=== PATIENT | male | born 1960 | race Caucasian/White ===

== ENCOUNTER 2017-02-09 09:32 | Inpatient (IN) | payer BC ==
--- NOTE | ~2017-02-09 | HP ---
History And Physical [address] [place]. [address] NAME: LIDIA CALLEJAS SHIMA : 64 STATUS : ADM IN [facility]#: [id number] AGE: 56 ADM/REG DATE : 02/09/17 MR#: [id number] REPORT SERV DATE: 02/09/17 DICTATED BY: STEVE PHILLIPS DATE: 02/09/17 REPORT STATUS : Draft TRANSCRIBED BY: MODDavi DATE: 02/09/17 DATE OF ADMISSION: 02/09/2017 REASON FOR ADMISSION: Weakness of the lower extremities. HISTORY OF PRESENT ILLNESS: This is a 56-year-old white male, who is well known to me from past care. He had morbid obesity and gastric bypass by Dr. William. His problem began this morning when he got up and fell. His neighbor brought him into the emergency room. He has had been having weakness in his left lower extremity for a long period of time. There are times when he cannot raise his legs and cross them. He has had some bilateral tingling and numbness that he was speaking to Dr. Ponce about; however, he denies any upper extremity weakness, numbness, or tingling to me. He does have chronic kidney disease. Creatinine of 1.96 is down slightly. He has been placed on an ARB since his renal failure was initially discovered and did respond to withholding of the COLBY inhibitor that he was on previously. He is also having hyperchloremic metabolic acidosis, and is on bicarbonate for that as well. New medication added was hydralazine added by Dr. William about two months ago at 25 mg p.o. three times a day. He has longstanding history of murmur and is followed by Dr. William with echocardiogram, though he is not sure which valvular problem he may have. PAST MEDICAL HISTORY: CABG in 2011. He was hospitalized at [facility] for that. He follows with Dr. William for Cardiology care. HOME MEDICATIONS: Include the following: Calcium; vitamin D one p.o. daily; furosemide 40 mg p.o. on Monday, Monday, and Monday; hydralazine 25 mg p.o. t.i.d.; losartan 25 mg p.o. daily; multivitamin minerals one a day; pantoprazole 40 mg p.o. b.i.d.; sodium bicarbonate tablets 650 mg p.o. b.i.d.; and sucralfate 1 g p.o. three times a day. ALLERGIES: NONE ARE KNOWN. HE HAD A HISTORY OF INTESTINAL PERFORATION IN THE PAST, WAS OPERATED ON BY DR. GILBERTO WILLIAM WITH A PERFORATED ULCER AT THE GASTROJEJUNOSTOMY SITE WHICH WAS SUTURED. HE HAD GASTRIC BYPASS SURGERY IN ABOUT 2011 WELL. HE DID HAVE ELEVATED BLOOD SUGAR WHEN HE WAS OBESE, IT IS RESOLVED NOW. HE DOES HAVE HYPERTENSION, BUT IS IMPROVING OVER TIME. HE HAD A HISTORY OF HYPERCHOLESTEROLEMIA, IS NOT TAKING ANY STATINS AFTER HIS WEIGHT LOSS. HE DOES HAVE LONGSTANDING HISTORY OF RENAL DYSFUNCTION AND IS SEEING DR. GONZALEZ FOR THAT NOW. History And Physical [address] [address] NAME: LIDIA CALLEJAS SHIMA : 64 STATUS : ADM IN [facility]#: [id number] AGE: 56 ADM/REG DATE : 02/09/17 MR#: [id number] REPORT SERV DATE: 02/09/17 DICTATED BY: STEVE PHILLIPS DATE: 02/09/17 REPORT STATUS : Draft TRANSCRIBED BY: LEEANN DATE: 02/09/17 FAMILY HISTORY: He had obesity, hypertension, diabetes that run in the family. Cholesterol was controlled. His mother used to work for [employer]. SOCIAL HISTORY: He is single. 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 He never smoked or drank. Attends a variety of churches. He has a next door neighbor, who brought him to the hospital. He was in [facility] with [employer] [address] in [place], [place] in the past, and attended [employer]. [place] is his home town. REVIEW OF SYSTEMS: He denies any chest pain or shortness of breath. No fever, chills, or night sweats. No change in his taste. No double vision. No stiff neck. No melena, hematemesis, fits, seizures, or convulsions. He has no complaints with his strength nor the sensation in his upper extremities. He has had problems with left lower extremity in the past. He has had difficulty standing and moving well, and uses a cane for balance. He feels like his hips work differently from the feet, though he has no chetna numbness of his feet. He has had no new weight loss. No dysuria, no urinary retention. He has had falling yesterday and today with difficulty getting up. The remainder of the review of systems is negative. PHYSICAL EXAMINATION: GENERAL: White male, looking slightly older than the stated age, in no acute distress. VITAL SIGNS: Blood pressure 134/74, with a heart rate of 75, respiratory rate 16, afebrile. HEENT: EOMI. Sclerae clear. Conjunctivae pink. NECK: No bruit without any JVD. CHEST: Clear to A and P. HEART: Regular S1, S2 without murmur, gallop, or click. ABDOMEN: Soft and nontender. Bowel sounds are positive. No HSM. EXTREMITIES: No edema. He does have strong stasis changes on the shins bilaterally. Distal pulses are palpable dorsalis pedis bilaterally. He does have interosseous wasting of the muscles of the toes, also has hammertoe abnormality on the left side greater than the right. NEUROLOGIC: He does not move to plantar stimulation. No DTRs elicitable in the ankles; however, he does have a very brisk rapid reflexes of the knees. Sensory is intact to touch. Strength in the lower extremities is 4/5 bilaterally. Heel to lundy shows some mild dysmetria of the lower extremities with the right over left more dysmetria than the left over right. LABORATORY DATA: MCV is 96. His hemoglobin 11.6, hematocrit 35.7, white count 6.3, and platelets were 224,000. His chest x-ray portable shows no acute cardiopulmonary abnormality. His CMP showed a creatinine of 1.94. Sodium 147, potassium 4.4, chloride 118, CO2 of 20, and the BUN is 40. CPK was 816 with an AST of 4.3. Troponin is less than 0.03. CT scan of the brain was performed in the emergency room that showed no intracranial History And Physical [address] [address] NAME: LIDIA CALLEJAS SHIMA : 64 STATUS : ADM IN [facility]#: [id number] AGE: 56 ADM/REG DATE : 02/09/17 MR#: [id number] REPORT SERV DATE: 02/09/17 DICTATED BY: STEVE PHILLIPS DATE: 02/09/17 REPORT STATUS : Draft TRANSCRIBED BY: LEEANN DATE: 02/09/17 abnormality. ASSESSMENT: 1. Lower extremity weakness, old left, new right, but upper extremities are spared. I doubt this is a stroke. I believe he may have cord compression problems with the history of this coming on slowly and now falling. Examination showing hyperreflexia bilaterally. No neurogenic bladder. We will check an ultrasound. CPK is elevated because of a fall. I believe though he could have a primary muscle disorder, we are going to check amylase. 2. Obesity. Resolved with gastric bypass done by Dr. William in about 2011. 3. Hypertension. 4. Chronic kidney disease stage 4. Dr. Andrew Gonzalez is following. His BUN is 40. 5. Stasis changes of the lower extremities. 6. History of perforated ulcer two years ago with bleeding at the anastomosis site of the gastric jejunal anastomosis. 7. Neuropathy, likely with feet wasting and the muscularis causing him to have to use a cane for balance. Sensory is actually intact. PLAN: I am going to check a B12, magnesium, and repeat the muscle enzymes. MRI of his lumbar spine. Check a B12 and TSH, sedimentation rate. I am going to also check an DAVIDSON since he was recently started on the hydralazine and hold the hydralazine for now. DB/LEEANN Steve Phillips M.D. / [id number] CC: Steve Phillips M.D. Qing Hathaway Jr., M.D. Munford Yates III, M.D. Nilesh C Patel, M.D.
--- NOTE | ~2017-02-09 | DS ---
Discharge Summary [address] [place]. [address] NAME: LIDIA CALLEJAS SHIMA : 64 STATUS : DIS IN PAT#: [id number] AGE: 56 ADM/REG DATE : 02/09/17 MR#: [id number] REPORT SERV DATE: 02/12/17 DICTATED BY: DAVID ANDRADE DATE: 02/11/17 REPORT STATUS : Draft TRANSCRIBED BY: MODL DATE: 02/11/17 ADMISSION DATE: 02/09/2017 DISCHARGE DATE: 02/11/2017 PRINCIPAL DIAGNOSES: Spinal stenosis with neuropathy and lower extremity weakness. SECONDARY DIAGNOSES: 1. Type 2 diabetes. 2. Hypertension. 3. Fall. 4. Rhabdomyolysis. 5. Chronic kidney disease stage 3. HISTORY OF PRESENT ILLNESS: Please see Dr. Pagan dictation of 02/09/2017. HOSPITAL COURSE: Admitted with bilateral lower extremity weakness, progressive and somewhat acute worsening. He had evidence of hyperreflexia, was concerned about cord compression. The patient did not have cord compression but did no significant spinal stenosis at L4-L5, seen by the Ortho-spine, wished for a short course of physical rehabilitation and steroids with an anticipation of needing surgery in the next few weeks. He received a course of prednisone, prescription for a wheelchair as needed but encouraged to walk as much as he could. Neurontin prescription was also provided, otherwise continue his present medicines and follow up with Dr. Renata Beltran, p.r.n. and with Dr. Burrows in 2 weeks for definitive management of spinal stenosis. CORTEZ/LEEANN David Andrade M.D. / [id number] CC: Qing Guerra D.O.
[~2017-02-09 09:32] MED LIST: ACET500CAP PO; AMARYL4 PO; AUG875 PO; BYSTOLIC2.5 MG PO; BYSTOLIC5 MG PO; CENTRUM TAB1 TAB PO; COZ25 PO; CYANO1000T PO; KALEXATE; MEVACOR40 MG PO; MULTIPLE VIT PO; NORV5 PO; NOVOLOGMIX SC; OS500+D PO; PROAIR HFA INH; PROTONIX PO; SUCR PO; VITAMIN D1000 UNI1 PO; [UNRECOGNIZED DRUG - OTHER]
[2017-02-09 10:13] LABS: BASOPHILS 0.5 %; BASOPHILS ABSOLUTE 0.03 10/3/uL (0.0-0.16); EOSINOPHILS 0.5 %; EOSINOPHILS ABSOLUTE 0.03 10/3/uL (0.0-0.53); HEMATOCRIT 35.7 % (40.0-51.0); HEMOGLOBIN 11.6 g/dL (13.6-17.8); IMMATURE GRANULOCYTES 0.3 %; IMMATURE GRANULOCYTES ABSOLUTE 0.02 10/3/uL (0.0-0.11); LYMPHOCYTES 12.3 %; LYMPHOCYTES ABSOLUTE 0.77 10/3/uL (0.67-4.30); MEAN CORPUS HGB CONC 32.5 g/dL (32.0-36.0); MEAN CORPUSCULAR HEMOGLOB 31.2 pg (26.0-34.0); MEAN PLATELET VOLUME 8.8 fL (9.2-13.0); MONOCYTES 8.5 %; MONOCYTES ABSOLUTE 0.53 10/3/uL (0.21-1.20); NEUTROPHILS 77.9 %; NEUTROPHILS ABSOLUTE 4.88 10/3/uL (2.02-8.40); PLATELET COUNT 224 10/3/uL (150-400); RBC DISTRIBUTION WIDTH 14.8 % (12.0-16.0); RED CELL COUNT 3.72 10/6/uL (4.7-6.1); WHITE BLOOD CELLS 6.3 10/3/uL (4.5-10.5)
[2017-02-09 10:16] LABS: MANUAL DIFF NO %
[2017-02-09 10:20] LABS: INTERNATIONAL NORMAL RATI 1.1 UNITS (-); PARTIAL THROMBO TIME 28.9 SEC (22.5-37.2)
[2017-02-09 10:31] LABS: A/G RATIO 0.9 (0.7-1.9); ALBUMIN 3.3 G/DL (3.5-5.0); ALKALINE PHOSPHATASE 61 U/L (45-117); BUN (BLOOD UREA NITROGEN) 40 MG/DL (6-23); CALCIUM, SERUM 8.3 MG/DL (8.5-10.4); CHLORIDE, SERUM 118 MMOL/L (96-112); CO2 (CARBON DIOXIDE) 20 MMOL/L (24-34); CPK (IF ELEVATED MB BANDS) 816 U/L (0-200); CREATININE 1.94 MG/DL (0.70-1.30); GFR AFRICAN AMERICAN 44 ML/MIN (>=60); GFR NON AFRICAN AMERICAN 38 ML/MIN (>=60); GLOBULIN 3.8 G/DL (2.5-4.1); GLUCOSE, SERUM 138 MG/DL (60-99); POTASSIUM, SERUM 4.4 MMOL/L (3.5-5.3); SGOT(AST) 43 U/L (5-40); SGPT(ALT) 26 U/L (5-65); SODIUM, SERUM 147 MMOL/L (135-148); TOTAL BILIRUBIN 0.3 MG/DL (0-1.2); TOTAL PROTEIN 7.1 G/DL (6.0-8.5); TROPONIN I 0.03 NG/ML (<0.05)
[2017-02-09 10:43] LABS: CK-MB 8.8 NG/ML; CKMB INDEX (NOT ORD) 1.1
[2017-02-09] MEDS ORDERED: APRES25 PO (12:03)
[2017-02-09] MEDS ORDERED: SUCR PO (12:03)
[2017-02-09] MEDS ORDERED: SODBICAR10 PO (12:03)
[2017-02-09] MEDS ORDERED: L40 PO (12:03)
[2017-02-09] MEDS ORDERED: MULTIVITAMI1 PO (12:04)
[2017-02-09] MEDS ORDERED: COZ25 PO (12:04)
[2017-02-09] MEDS ORDERED: OS500+D PO (12:04)
[2017-02-09] MEDS ORDERED: PROTONIX PO (12:04)
[2017-02-09 16:10] LABS: T PROTEIN (ELECT)(NOT OR 6.9 G/DL (6.0-8.5)
[2017-02-09 16:45] LABS: C-REACTIVE PROTEIN 7.8 MG/L (<8.0); CHOL/HDL RATIO(NOT ORDER) 1.6 (0-5); ULTRASENSITIVE TSH 0.854 MCIU/ML (0.358-3.740)
[2017-02-09 16:47] LABS: FOLATE 70.4 NG/ML (>5.2)
[2017-02-09 17:20] LABS: CK-MB 7.4 NG/ML; CKMB INDEX (NOT ORD) 0.9; TROPONIN I 0.02 NG/ML (<0.05)
[2017-02-10 02:25] LABS: BASOPHILS 0.8 %; BASOPHILS ABSOLUTE 0.04 10/3/uL (0.0-0.16); HEMOGLOBIN 10.3 g/dL (13.6-17.8); IMMATURE GRANULOCYTES 0.2 %; IMMATURE GRANULOCYTES ABSOLUTE 0.01 10/3/uL (0.0-0.11); LYMPHOCYTES 37.1 %; LYMPHOCYTES ABSOLUTE 1.85 10/3/uL (0.67-4.30); MEAN CORPUS HGB CONC 33.1 g/dL (32.0-36.0); MEAN CORPUSCULAR HEMOGLOB 31.5 pg (26.0-34.0); MEAN CORPUSCULAR VOLUME 95.1 fL (80-100); MEAN PLATELET VOLUME 9.3 fL (9.2-13.0); MONOCYTES 10.6 %; MONOCYTES ABSOLUTE 0.53 10/3/uL (0.21-1.20); NEUTROPHILS 49.3 %; NEUTROPHILS ABSOLUTE 2.45 10/3/uL (2.02-8.40); PLATELET COUNT 208 10/3/uL (150-400); RBC DISTRIBUTION WIDTH 14.6 % (12.0-16.0); RED CELL COUNT 3.27 10/6/uL (4.7-6.1)
[2017-02-10 02:26] LABS: HEMATOCRIT 31.1 % (40.0-51.0); MANUAL DIFF NO %
[2017-02-10 02:44] LABS: CALCIUM, SERUM 8.3 MG/DL (8.5-10.4); CHLORIDE, SERUM 122 MMOL/L (96-112); CO2 (CARBON DIOXIDE) 18 MMOL/L (24-34); CPK 662 U/L (0-200); CREATININE 1.68 MG/DL (0.70-1.30); GFR AFRICAN AMERICAN 53 ML/MIN (>=60); GFR NON AFRICAN AMERICAN 45 ML/MIN (>=60); POTASSIUM, SERUM 4.6 MMOL/L (3.5-5.3); SODIUM, SERUM 152 MMOL/L (135-148)
[2017-02-10 02:45] LABS: BUN (BLOOD UREA NITROGEN) 32 MG/DL (6-23); CPK 667 U/L (0-200); GLUCOSE, SERUM 81 MG/DL (60-99); TROPONIN I 0.04 NG/ML (<0.05)
[2017-02-10 02:46] LABS: CK-MB 4.8 NG/ML
[2017-02-10 08:21] LABS: ALBUMIN RELAT % 39.9 %
[2017-02-10 08:28] LABS: A/G 1.38 RATIO (0.9-2.10); ALB RELATIVE % 57.9 % (60.0-89.0); ALPHA 1 (ELECTRO) 0.21 GM/DL (0.1-0.4); ALPHA 1 RELAT % (NOT ORD) 3.1 % (1.0-4.0); ALPHA 2 (ELECTRO) 0.91 GM/DL (0.5-1.10); ALPHA 2 RELAT % 13.2 % (4.5-26.0); BETA GLOBULIN (SPE) 0.79 GM/DL (0.60-1.30); BETA RELATIVE % 11.5 % (9.0-22.0); GAMMA GLOBULIN (SPE) 0.99 G/DL (0.70-1.60); GAMMA RELAT % 14.3 % (6.0-22.0)
[2017-02-10 10:30] LABS: ANA PATTERN HOMOGENEOUS; ANA TITER 1:40 TITER
[2017-02-11 05:20] LABS: INSTRUMENT SERIAL # 8083
[2017-02-11 05:21] LABS: BE (BASE EXCESS) -7.3 MEQ/L (0 +/- 2.5); CARBOXYHEMOGLOBIN 1.3 % (0-3); DEVICE ROOM AIR; HCO3 (ACTUAL BICARBONATE) 17.5 MEQ/L (23-27); HEMOBLOGIN CONTENT 12.2 G/DL (14-18); METHEMOGLOBIN 0.3 % (0-3); O2 CONTENT 16.3 VOL% (18-24); OPERATOR ID 16503; PCO2 (CO2 TENSION) 33 MMHG (35-45); PO2 (O2 TENSION) 88 MMHG (79-93); SAMPLE Arterial; pH 7.34 (7.37-7.43)
[2017-02-11 06:30] LABS: BUN (BLOOD UREA NITROGEN) 36 MG/DL (6-23); CALCIUM, SERUM 8.9 MG/DL (8.5-10.4); CHLORIDE, SERUM 116 MMOL/L (96-112); CO2 (CARBON DIOXIDE) 18 MMOL/L (24-34); CREATININE 1.78 MG/DL (0.70-1.30); GFR AFRICAN AMERICAN 49 ML/MIN (>=60); GFR NON AFRICAN AMERICAN 42 ML/MIN (>=60); GLUCOSE, SERUM 177 MG/DL (60-99); SODIUM, SERUM 144 MMOL/L (135-148)
[2017-02-11] MEDS ORDERED: ASAB PO (16:25)
[2017-02-11] MEDS ORDERED: P10 PO (16:36)
[2017-02-11] MEDS ORDERED: DIABET2.5 PO ×2 (16:37→16:38)
[2017-02-11] MEDS ORDERED: NEUR300 PO (16:47)
[2017-03-21] MEDS ORDERED: CAT1 PO (11:45)
[2017-03-21] MEDS ORDERED: VOLTAREN1 % TOP (11:46)
[2017-03-21] MEDS ORDERED: STOOL SOFTEN240 MG PO (11:47)
[2017-03-21] MEDS ORDERED: LOVENOX40 SC (11:49)
[2017-03-21] MEDS ORDERED: FERROUS SULF325 M1 PO (11:51)
[2017-03-21] MEDS ORDERED: NEUR300 PO (11:52)
[2017-03-21] MEDS ORDERED: NYSTATIN T (11:55)
[2017-03-21] MEDS ORDERED: TYLENOL PM PO (12:02)
[2017-03-21] MEDS ORDERED: [UNRECOGNIZED DRUG - OTHER] T (12:06)
== END 2017-02-11 16:54 | disposition home or self-care (01) | DRG 552 ==
LOC: ER 09:32 → 1SO 12:25
PROVIDERS: Hospitalist; Internal Medicine
DX: M48.06 Spinal stenosis, lumbar region (principal); E87.2 Acidosis; N18.4 Chronic kidney disease, stage 4 (severe); M62.82 Rhabdomyolysis; G62.9 Polyneuropathy, unspecified; E11.22 Type 2 diabetes mellitus with diabetic chronic kidney disease; I25.10 Atherosclerotic heart disease of native coronary artery without angina pectoris; I87.8 Other specified disorders of veins; I12.9 Hypertensive chronic kidney disease with stage 1 through stage 4 chronic kidney disease, or unspecified chronic kidney disease; M20.41 Other hammer toe(s) (acquired), right foot; M20.42 Other hammer toe(s) (acquired), left foot; W18.30XA Fall on same level, unspecified, initial encounter; Z79.82 Long term (current) use of aspirin; Z79.899 Other long term (current) drug therapy; Z98.84 Bariatric surgery status; Z95.1 Presence of aortocoronary bypass graft; Z87.11 Personal history of peptic ulcer disease; Z85.828 Personal history of other malignant neoplasm of skin
CPT/HCPCS: 70450; 71010; 72148; 80048; 80053; 80061; 82085; 82525; 82550; 82553; 82607; 82746; 82805; 82962; 83036; 83540; 83550; 83735; 84155; 84156; 84165; 84166; 84443; 84484; 85025; 85610; 85652; 85730; 86039; 86140; 93005; 93880; 97116-GP; 97162-GP; 99285; A9270-GY

== ENCOUNTER 2017-02-20 16:50 | Inpatient (IN) | payer BC ==
--- NOTE | ~2017-02-20 | CN ---
Consultation Report [facility] [address] [place]. [address] NAME: LIDIA STEEN SHIMA : 64 STATUS : ADM [facility] PAT#: [id number] AGE: 57 ADM/REG DATE : 02/20/17 MR#: [id number] REPORT SERV DATE: 02/21/17 DICTATED BY: SUN STEPHENS DATE: 02/21/17 REPORT STATUS : Draft TRANSCRIBED BY: MODDavi DATE: 02/21/17 NEPHROLOGY CONSULTATION DATE OF CONSULTATION: 02/21/2017 INDICATION FOR CONSULTATION: Chronic kidney disease, hyperkalemia. HISTORY OF PRESENT ILLNESS: Mr. Steen is a 57-year-old male, followed by Dr. Gonzalez for CKD stage 3 with baseline creatinine ranging 1.6 to 1.9 and peak values noted in the office labs of 2.4. On admission, his creatinine was 1.75 with potassium of 6.5. Medical therapy was instituted for his hyperkalemia, which was 5.3 on 02/21/2017 and his creatinine was 1.67. He currently is admitted for microdiskectomy due to numbness, weakness in right lower extremity with intermittent pain and falls. PAST MEDICAL HISTORY: CKD stage 3 baseline creatinine 1.6 to 1.9, type 2 diabetes mellitus, hypertension, history of colon polyps, history of peptic ulcer disease, gastroesophageal reflux disease, asthma, hyperlipidemia, spinal stenosis, first degree AV block, previous sleep apnea prior to bariatric surgery, disk herniation, neuropathy. MEDICATIONS: Calcium, Lasix, Neurontin, glyburide, hydralazine, Cozaar, multivitamin, Protonix, sodium bicarb, Carafate. ALLERGIES: NONE KNOWN. PAST SURGICAL HISTORY: Gastric bypass with Kassi-en-Y, perforated peptic ulcer with bowel resection in 2013, cataract surgery with lens implants, skin cancers removed from arms. FAMILY HISTORY: Positive for diabetes, hypertension, skin cancer. Mother had hypertension and diabetes. Father had hypertension and diabetes. Siblings were diabetic. One sister from melanoma. SOCIAL HISTORY: The patient is single. No children. Uses crutches and has a wheelchair. No tobacco, alcohol, or illicit drug use. 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 REVIEW OF SYSTEMS: HEENT: No change in visual acuity. No epistaxis. No otic infection. No pharyngitis. PULMONARY: Denies shortness of breath, cough, hemoptysis. CARDIAC: No chest pain. No lower extremity edema. GI: No nausea, vomiting, or melena. : No gross hematuria, dysuria, pyuria. MUSCULOSKELETAL: Pain in back, weakness in right lower extremity, recent falls. DERMIS: Skin cancers. No rash. No new skin lesions. NEUROLOGIC: Right lower extremity weakness with some recent falls. No seizure activity. Consultation Report [address] [place]. [address] NAME: LIDIA STEEN SHIMA : 64 STATUS : ADM [place] PAT#: [id number] AGE: 57 ADM/REG DATE : 02/20/17 MR#: [id number] REPORT SERV DATE: 02/21/17 DICTATED BY: SUN STEPHENS DATE: 02/21/17 REPORT STATUS : Draft TRANSCRIBED BY: LEEANN DATE: 02/21/17 Remainder of 12-point review of systems negative. PHYSICAL EXAMINATION: GENERAL: Pleasant white male, alert, cooperative. VITAL SIGNS: Blood pressure 139/67, temperature 98.2, respiratory rate 20, pulse 68. HEENT: Eyes, no scleral icterus. Pupils equal, reactive to light. Extraocular movement intact. Nares patent, no discharge. Throat, no injection. Mucous membranes moist. NECK: No thyromegaly, masses, bruits. CHEST/LUNGS: Few late crackles laterally. No wheezing. No dullness to percussion. CARDIAC: Regular rate and rhythm. 1 to 2 over 6 systolic ejection murmur. No gallop or rub. ABDOMEN: Supple. Normoactive bowel sounds. Nontender. No hepatosplenomegaly. No masses. No bruits. /RECTAL: Not performed. EXTREMITIES: No edema. No calf tenderness. DERMIS: No rash. No skin lesions. MUSCULOSKELETAL: No deformity. No joint effusions. NEUROLOGIC: Cranial nerves intact. No lateralizing weakness. IMPRESSION: 1. Chronic kidney disease stage 3, stable at baseline creatinine. 2. Hyperkalemia, corrected with medical therapy. 3. Spinal stenosis with neuropathy in lower extremities. 4. Hypertension. 5. Type 2 diabetes mellitus. 6. History of colon polyps. 7. Asthma. 8. Gastroesophageal reflux disease. 9. Neuropathy. 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 PLAN: 1. Labs. 2. Monitor potassium closely. 3. Hold Cozaar. CG/MODL Sun Stephens M.D. / [id number] Consultation Report [address] [place]. [address] NAME: LIDIA STEEN : 64 STATUS : ADM [facility] PAT#: [id number] AGE: 57 ADM/REG DATE : 02/20/17 MR#: [id number] REPORT SERV DATE: 02/21/17 DICTATED BY: SUN STEPHENS DATE: 02/21/17 REPORT STATUS : Draft TRANSCRIBED BY: LEEANN DATE: 02/21/17 CC: DO Renata Bob
--- NOTE | ~2017-02-20 | OP ---
Record Of Operation [facility] [address] [place]. [address] NAME: LIDIA CALLEJAS SHIMA : 64 STATUS : ADM [place] PAT#: [id number] AGE: 57 ADM/REG DATE : 02/20/17 MR#: [id number] REPORT SERV DATE: 02/21/17 DICTATED BY: GABINO MARK DATE: 02/21/17 REPORT STATUS : Draft TRANSCRIBED BY: LEEANN DATE: 02/21/17 DATE OF PROCEDURE: 02/21/2017 PREOPERATIVE DIAGNOSIS: Spinal stenosis and disk herniation at L2 through L5. PLANS PROCEDURE: Right L2 through L5 microdiskectomy. The patient was taken to the operating room, underwent general anesthesia, was turned to the prone position, and found to have severe skin breakdown throughout the bilateral buttocks, perineal region, and lower lumbar area including the area where I would have been planning to make incision. Unfortunately, this has not been made aware to me prior to intubation, but given his history of renal disease and diabetes, the added significant risk of poor skin I feel that proceeding with surgery would have too however risk, severe wound infection problems. As a result, the surgery was aborted prior to making incision. He will be extubated and taken back to the floor and Wound Care consult will be obtained to work on his skin breakdown. DUY/LEEANN Gabino Mark DO / [id number] CC: Gabino Mark DO
--- NOTE | ~2017-02-20 | HP ---
History And Physical [address] [place]. [address] NAME: LIDIA CALLEJAS SHIMA : 64 STATUS : ADM [facility] PAT#: [id number] AGE: 57 ADM/REG DATE : 02/20/17 MR#: [id number] REPORT SERV DATE: 02/21/17 DICTATED BY: GABINO BOSTON DATE: 02/21/17 REPORT STATUS : Draft TRANSCRIBED BY: LEEANN DATE: 02/21/17 DATE OF ADMISSION: 02/20/2017 CHIEF COMPLAINT: Bilateral lower extremity weakness and gait disturbance. HISTORY OF PRESENT ILLNESS: The patient is a 57-year-old, who presented to my office on 02/20/2017 in a scooter. States that he had been in the hospital approximately two weeks ago. Went home with steroids and has been unable to ambulate since then. Presented to my office and ask for placement during the hospital or extended care facility. REVIEW OF SYSTEMS: He denied chest pain, shortness of breath, or bowel or bladder changes. PAST MEDICAL HISTORY: Diabetes, hyperkalemia, chronic kidney disease stage III, hypertension, gastric reflux, neuropathy, sleep apnea, asthma. FAMILY HISTORY: Noncontributory. ALLERGIES: DENIED. HOME MEDICATIONS: Calcium, vitamin D, Lasix, Neurontin, glyburide, hydralazine, Cozaar, multivitamin, Protonix, sodium bicarbonate, and Carafate. PHYSICAL EXAMINATION: GENERAL: The patient is ill appearing, somewhat disheveled. PSYCH: He is alert and oriented. Normal mood and affect. Gait, the patient is nonambulatory at this point and riding a scooter. SPINE: The patient has some diffuse tenderness over the lower lumbar region. HEART: Positive for murmur. Regular rate and rhythm. LUNGS: Clear to auscultation. ABDOMEN: Soft, nontender, nondistended. Good bowel sounds. BREASTS AND RECTAL: Both deferred. NEUROLOGIC: The patient had diffuse weakness in bilateral lower extremities, approximately 3/5 bilateral lower extremities diffusely. IMAGING: I did repeat a new MRI scan on admission as the previous MRI had significant motion artifact and was not sufficient for a good interpretation. On the new scan, the patient does have stenosis of L2 through L5 with significant nerve compression. ASSESSMENT: Lumbar disk disease and stenosis with gait disturbance at L2 through L5. PLAN: The patient will be admitted to the hospital. I will obtain Hospitalist consult for his multiple medical comorbidities. We will plan for surgery. Pending medical clearance and the patient will need inpatient rehabilitation placement at discharge as he is not able to care for himself sufficiently at home. History And Physical [address] [address] NAME: LIDIA CALLEJAS SHIMA : 64 STATUS : ADM [place] PAT#: [id number] AGE: 57 ADM/REG DATE : 02/20/17 MR#: [id number] REPORT SERV DATE: 02/21/17 DICTATED BY: GABINO BOSTON DATE: 02/21/17 REPORT STATUS : Draft TRANSCRIBED BY: LEEANN DATE: 02/21/17 DUY/LEEANN Gabino Boston DO / [id number] CC: Gabino Boston DO
--- NOTE | ~2017-02-20 | DS ---
Discharge Summary [facility] [address] [place]. [address] NAME: LIDIA CALLEJAS SHIMA : 64 STATUS : DIS IN PAT#: [id number] AGE: 57 ADM/REG DATE : 02/20/17 MR#: [id number] REPORT SERV DATE: 03/02/17 DICTATED BY: LOUANN FLOOD DATE: 03/01/17 REPORT STATUS : Draft TRANSCRIBED BY: MODL DATE: 03/01/17 ADMISSION DATE: 02/20/2017 DISCHARGE DATE: 03/01/2017 HOSPITAL COURSE: This is a 57-year-old male. He has a known past medical history of morbid obesity; hyperlipidemia; asthma; GERD; peptic ulcer disease; hypertension; CKD 3, sees Dr. Gonzalez for his nephrology needs, type 2 diabetes; cataracts; neuropathy; history of AV block, previous sleep apnea prior to bariatric surgery, no longer needs it after having bariatric surgery; gastric bypass; Kassi-en-Y 02/2012. The patient came in initially on 02/09 after a fall and lower extremity weakness. He was discharged, placed on steroids at that time. Came in now with right lower extremity weakness. Was to have a microdiskectomy on 02/21/2017; however, upon going to the operating room, was found have severe skin breakdown throughout bilateral buttocks, perineal region, left lower lumbar area, where he would have had an incision or wound infection, was thought to have been too risky, aborted the procedure. Was consulted to the hospitalist, transferred care to the hospitalist here, 02/22/2017. As a result, Wound Care has been evaluating the patient. Wounds look much better. The patient is getting Venelex and nystatin powder t.i.d. The patient did have some swelling as well in the left upper extremity after IV infusion, looked to be infiltrated, in case got ultrasound of his extremity, small bowel distal superficial clot identified near the wrist. No significant thrombosis. Given it is superficial, not a true DVT, can just use ice. The patient did have an MRI of the lumbar spine, which showed no significant change of generalized central and right-sided L4-L5 herniation with extrusion and associated high-grade canal stenosis through canal L2 to L4 and overall stable. 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 Should follow up as an outpatient. DISCHARGE MEDICATIONS: Will include Caltrate iron supplement 300 p.o. t.i.d. with meals; gabapentin 300 p.o. t.i.d.; as well as Cozaar 25 p.o. daily; multivitamin one tablet p.o. daily; as well as Protonix 40 p.o. b.i.d.; sodium bicarbonate 650 p.o. b.i.d.; Carafate 1 g p.o. t.i.d. with meals; Venelex ointment with nystatin powder, apply one application topical three times a day, apply to lower back, buttocks, and perineum; hydralazine 25 p.o. t.i.d.; as well as Lasix 40 p.o. Monday, Monday, and Monday; glyburide 2.5 p.o. q.a.m.; one half gallon of water p.o. daily, this will not be given if the patient is at baseline creatinine. FOLLOWUP: The patient to follow up with Orthopedics likely in four to six weeks for possible microdiskectomy at that time. Once his wounds have properly healed, we will have him also follow up [facility] in two to four weeks prior to his orthopedic appointment. CONSULTS: See above as well as Ortho, Wound Care, Nephrology. PROCEDURES: None that were done definitively. Was to have a microdiskectomy, but was aborted at that time. DISCHARGE DIAGNOSIS: Intractable low back pain, spinal stenosis. Outpatient Ortho Spine Discharge Summary [address] [address] NAME: CALLEJASLIDIA SHIMA : 64 STATUS : DIS IN PAT#: [id number] AGE: 57 ADM/REG DATE : 02/20/17 MR#: [id number] REPORT SERV DATE: 03/02/17 DICTATED BY: LOUANN FLOOD DATE: 03/01/17 REPORT STATUS : Draft TRANSCRIBED BY: LEEANN DATE: 03/01/17 when sacral wounds are less of a risk. Cutaneous candidiasis, diabetes, chronic kidney disease 3, hypertension, superficial left distal wrist VTE, but not a true DVT. As a result, I will defer to his PCP regarding aspirin given significant history of peptic ulcer disease. Could consider possible Plavix. If his superficial VTE did not improve, certainly if he had a re-scan with propagation DVT, would warrant risk and benefit of anticoagulation in setting of known history of peptic ulcer disease. All questions were answered. It took well over 30 minutes to do. MONISHA/LEEANN Louann Flood DO / [id number] CC: DO KINJAL Bob
--- NOTE | ~2017-02-20 | CN ---
Consultation Report [facility] [address] [place]. [address] NAME: LIDIA CALLEJAS SHIMA : 64 STATUS : ADM IN PAT#: [id number] AGE: 57 ADM/REG DATE : 02/20/17 MR#: [id number] REPORT SERV DATE: 02/21/17 DICTATED BY: CRISTINAMADYSONCHANDANA SMART DATE: 02/21/17 REPORT STATUS : Draft TRANSCRIBED BY: MODL DATE: 02/21/17 CONSULTATION DATE OF CONSULTATION: 02/20/2017 REASON FOR CONSULTATION: Consulted for hypertension and medication management. IDENTIFYING DATA: 1. PCP: Renata Beltran NP. 2. Surgeon: Dr. Tim Mcclelland. 3. Student Development Advisor: Dr. Agustín William Jr. 4. Pipeline Construction Inspector: Dr. Gonzalez. 5. Orthopedist: Dr. Gabino Mark. 6. Vp Director Of Finance: Dr. Steve Juárez III. HISTORY OF PRESENT ILLNESS: This is a pleasant 57-year-old male, admitted per orthopedics for intractable back pain with inability to ambulate. Prior to this admission, he was admitted on 02/09/2017 with weakness of his lower extremities after status post fall. The patient states that he actually was discharged to home and placed on steroids. Presently, his back pain is worsen without the ability to ambulate. He says his weakness is greater to the right lower extremity. He presents to Dr. Gabino Mark for possible microdiskectomy on 02/21/2017. The patient has a history of hypertension, chronic kidney disease stage III, diabetes type 2, heart murmur, ulcer, neuropathy, GERD as well as first-degree AV block, and previously problems with morbid obesity and sleep apnea for which he states he no longer has a problems since he has dropped greater than 200 pounds. The patient's history was obtained through interview with the patient coupled with review of [facility], [email or web address], nurse consultant's notes, and some old medical records. PAST MEDICAL HISTORY: 1. Previous morbid obesity. 2. Hypercholesterolemia. 3. Asthma. 4. GERD. 5. Ulcer. 6. Polyps. 7. Murmur. 8. Hypertension. 9. Chronic kidney disease , stage III. 10.Diabetes, type 2. 11.Wears glasses. 12.Spinal stenosis. Consultation Report [id number] [place]. [address] NAME: LIDIA CALLEJAS SHIMA : 64 STATUS : ADM IN PAT#: [id number] AGE: 57 ADM/REG DATE : 02/20/17 MR#: [id number] REPORT SERV DATE: 02/21/17 DICTATED BY: MADYSON EVANS DATE: 02/21/17 REPORT STATUS : Draft TRANSCRIBED BY: MODL DATE: 02/21/17 13.Neuropathy. 14.Cataracts. 15.Arrhythmia with specifically PIT. 16.First-degree AV block. 17.Previous sleep apnea prior to bariatric surgery with the use of CPAP no longer needed. 18.Disk herniation. HABITS: 1. Calcium plus vitamin D 500 mg p.o. daily. 2. Lasix 40 mg p.o. Monday, Monday, Monday p.r.n. for edema. 3. Neurontin 300 mg p.o. every eight hours. 4. Glyburide 2.5 mg p.o. with breakfast. 5. Hydralazine 25 mg p.o. three times daily. 6. Cozaar 25 mg p.o. daily. 7. Multivitamin tablet one tablet p.o. daily. 8. Protonix 40 mg p.o. twice a day. 9. Sodium bicarb 650 mg p.o. twice a day. 10.Carafate 1 g p.o. three times daily. ALLERGIES: NO KNOWN ALLERGIES. SOCIAL HISTORY: The patient is single. He has no children. Lives in a single-level home. He does live alone. He uses crutches and has a wheelchair. He states no tobacco, no alcohol, or no illicit drug use. 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 FAMILY HISTORY: Positive for hypertension, diabetes, and skin cancer. Mother had hypertension and diabetes. Father has hypertension and diabetes. Siblings were diabetic. The patient had two brothers and one sister, who is now from melanoma. SURGICAL HISTORY: 1. Gastric bypass Kassi-en-Y on 02/2012. 2. Upper GI, 03/27/2014. 3. Perforated ulcer with the bowel resection on 11/17/2013. 4. IOLI in 2008. 5. Skin cancer of the arms and forehead, removed for basal cell carcinoma on 06/2013. REVIEW OF SYSTEMS: Negative other than what is in HPI. The patient presently has no shortness of breath. No nausea or vomiting. No abdominal pain. No chest pain. Displays no fever. No agitation or confusion. PHYSICAL EXAMINATION: VITAL SIGNS: From today blood pressure 152/66, respiratory rate 15, heart rate 63, temperature 98.6, O2 saturation 99% on room air. GENERAL: This is a very pleasant 57-year-old male, resting in bed, in no acute Consultation Report [address] [address] NAME: LIDIA CALLEJAS SHIMA : 64 STATUS : ADM IN [facility]#: [id number] AGE: 57 ADM/REG DATE : 02/20/17 MR#: [id number] REPORT SERV DATE: 02/21/17 DICTATED BY: MADYSON EVANS DATE: 02/21/17 REPORT STATUS : Draft TRANSCRIBED BY: LEEANN DATE: 02/21/17 distress. NEURO: His head is atraumatic, normocephalic. He is alert and oriented x3. Cranial nerves are intact. Mood is pleasant and appropriate. NECK: Supple. Trachea is midline. No JVD noted. No obvious thyromegaly or lymphadenopathy. EENT: Sclerae are nonicteric. Pupils are equal and reactive to light. Nares are patent. Mucous membranes moist. Tongue is midline. No deviation. Soft palate rises equally on phonation. CHEST: No pain with palpation. LUNGS: Clear to auscultation bilaterally. He has normal respiratory effort. No increased work of breathing with conversation. CARDIOVASCULAR: S1, S2. Positive for murmur. No rubs or gallops. He is on telemetry, displays a sinus rhythm, first-degree AV block, rate at 63. ABDOMEN: Soft, nontender. Bowel sounds are active. No palpable organomegaly. EXTREMITIES: Normal distal pulses. No calf tenderness. Does display stasis changes for his bilateral lower extremities. We will order TEDs and SCDs for DVT prophylaxis. SKIN: Warm and dry. He does have the stasis changes noted on his lower extremities, the darkened areas to his ankles. Normal color otherwise and turgor for age. PSYCH: He is pleasant and cooperative. Appropriate mood and affect. LABORATORY DATA: Sodium 144, potassium 6.5, chloride 114, BUN 52, creatinine 1.75, GFR 50, glucose 341, calcium 8.7. White blood cell 11.8, hemoglobin 12.3, hematocrit 38.4, platelets 363. On 02/20/2017, the patient has a portable chest x-ray, pending. On 02/20/2017, the patient had an EKG that displayed a sinus rhythm with a first-degree AV block at a rate of 66. On 02/20/2017, the patient has a pending MRI of the lumbar spine ordered by orthopedist, pending. ASSESSMENT AND PLAN: 1. Diabetes, type 2. The patient's present blood sugar is 341. He is normally diet- controlled at home. He does have an oral medication that he takes. His average blood sugars he says are 85 to 112, but he does not normally check his blood sugars. He has actually had a dose of steroid treatment prior to admission. We will hold his glyburide for now. We will put him on a diabetic diet, have clinical nurse educator to see him regarding monitoring of blood sugars and a diet. We will check a hemoglobin A1c. Place him on a sliding scale level 2 with blood sugars a.c. and at bedtime with a hypoglycemic protocol. We will also check a blood sugar at 2 a.m. Staff can call if it is greater than 150. 2. Hyperkalemia noted on present admission labs. Potassium was 6.5 on admit. The patient will receive calcium gluconate. He will be placed on telemetry. Albuterol neb x1, Kayexalate 30 g, and regular IV insulin to help decrease that potassium. We will recheck his BMP at 2130 hours and also recheck his blood sugar 30 minutes to an hour after insulin administration. 3. Chronic kidney disease, stage III. The patient does have a baseline creatinine of 1.8 to 1.9. His GFR was 50 on admission with a creatinine 1.7. We will institute a renal diet along with his diabetic diet. He will be placed on half normal saline at 50 after Consultation Report [address] [place]. [address] NAME: LIDIA CALLEJAS SHIMA : 64 STATUS : ADM IN [facility]#: [id number] AGE: 57 ADM/REG DATE : 02/20/17 MR#: [id number] REPORT SERV DATE: 02/21/17 DICTATED BY: MADYSON EVANS DATE: 02/21/17 REPORT STATUS : Draft TRANSCRIBED BY: LEEANN DATE: 02/21/17 he is n.p.o. after midnight. 4. Hypertension. Aware. We will continue his home medications of hydralazine and Cozaar. We will hold aspirin. 5. History of previous obstructive sleep apnea and asthma. He states prior to gastric bypass, he does not use a CPAP any longer. He is on no medications for asthma. We will monitor his O2 saturation continually. We will add albuterol p.r.n. shortness of breath or wheezing. 6. Neuropathy. Aware. We will continue his daily dose of Neurontin. 7. Gastroesophageal reflux disease. Aware. We will continue his Protonix b.i.d. as well as his sucralfate. Labs to be obtained: BMP, CBC, hemoglobin A1c, magnesium. A repeat BMP at 2130 hours, phosphorus, CK, CK-MB, troponin, and a renal profile as well as urinalysis prior to surgery tomorrow. [facility] would like to thank you for this consultation. Please let us know if we can be of further assistance. GABRILE Madyson Evans NP / [phone] CC: Gabino Mark, DO Renata Beltran
[~2017-02-20 16:50] MED LIST changes: +APRES25 PO; +ASAB PO; +DIABET2.5 PO; +L40 PO; +MULTIVITAMI1 PO; +NEUR300 PO; +P10 PO; +SODBICAR10 PO
[2017-02-20 18:01] LABS: BASOPHILS 0.1 %; BASOPHILS ABSOLUTE 0.01 10/3/uL (0.0-0.16); EOSINOPHILS 0.1 %; EOSINOPHILS ABSOLUTE 0.01 10/3/uL (0.0-0.53); HEMOGLOBIN 12.3 g/dL (13.6-17.8); IMMATURE GRANULOCYTES 0.9 %; LYMPHOCYTES 11.5 %; LYMPHOCYTES ABSOLUTE 1.35 10/3/uL (0.67-4.30); MEAN CORPUSCULAR HEMOGLOB 30.9 pg (26.0-34.0); MEAN CORPUSCULAR VOLUME 96.5 fL (80-100); MEAN PLATELET VOLUME 9.8 fL (9.2-13.0); MONOCYTES 6.3 %; MONOCYTES ABSOLUTE 0.74 10/3/uL (0.21-1.20); NEUTROPHILS 81.1 %; NEUTROPHILS ABSOLUTE 9.54 10/3/uL (2.02-8.40); RBC DISTRIBUTION WIDTH 15.1 % (12.0-16.0)
[2017-02-20 18:02] LABS: HEMATOCRIT 38.4 % (40.0-51.0); MANUAL DIFF NO %; PLATELET COUNT 363 10/3/uL (150-400); RED CELL COUNT 3.98 10/6/uL (4.7-6.1); WHITE BLOOD CELLS 11.8 10/3/uL (4.5-10.5)
[2017-02-20 18:14] LABS: BUN (BLOOD UREA NITROGEN) 52 MG/DL (6-23); CALCIUM, SERUM 8.7 MG/DL (8.5-10.4); CHLORIDE, SERUM 114 MMOL/L (96-112); CO2 (CARBON DIOXIDE) 26 MMOL/L (24-34); CREATININE 1.75 MG/DL (0.70-1.30); GFR AFRICAN AMERICAN 50 ML/MIN (>=60); GFR NON AFRICAN AMERICAN 43 ML/MIN (>=60); GLUCOSE, SERUM 341 MG/DL (60-99); POTASSIUM, SERUM 6.5 MMOL/L (3.5-5.3); SODIUM, SERUM 144 MMOL/L (135-148)
[2017-02-20 22:53] LABS: BUN (BLOOD UREA NITROGEN) 54 MG/DL (6-23); CALCIUM, SERUM 8.2 MG/DL (8.5-10.4); CHLORIDE, SERUM 117 MMOL/L (96-112); CREATININE 1.69 MG/DL (0.70-1.30); GFR AFRICAN AMERICAN 52 ML/MIN (>=60); GFR NON AFRICAN AMERICAN 45 ML/MIN (>=60); SODIUM, SERUM 147 MMOL/L (135-148)
[2017-02-20 22:54] LABS: CO2 (CARBON DIOXIDE) 20 MMOL/L (24-34); GLUCOSE, SERUM 225 MG/DL (60-99)
[2017-02-21 03:26] LABS: BASOPHILS 0.1 %; BASOPHILS ABSOLUTE 0.01 10/3/uL (0.0-0.16); EOSINOPHILS 0.4 %; EOSINOPHILS ABSOLUTE 0.03 10/3/uL (0.0-0.53); HEMOGLOBIN 10.6 g/dL (13.6-17.8); IMMATURE GRANULOCYTES ABSOLUTE 0.08 10/3/uL (0.0-0.11); LYMPHOCYTES 20.8 %; MEAN CORPUS HGB CONC 32.5 g/dL (32.0-36.0); MEAN CORPUSCULAR HEMOGLOB 31.4 pg (26.0-34.0); MEAN CORPUSCULAR VOLUME 96.4 fL (80-100); MEAN PLATELET VOLUME 9.5 fL (9.2-13.0); MONOCYTES 11.8 %; MONOCYTES ABSOLUTE 0.91 10/3/uL (0.21-1.20); NEUTROPHILS 65.9 %; NEUTROPHILS ABSOLUTE 5.06 10/3/uL (2.02-8.40); PLATELET COUNT 267 10/3/uL (150-400); RBC DISTRIBUTION WIDTH 15.1 % (12.0-16.0); RED CELL COUNT 3.38 10/6/uL (4.7-6.1); WHITE BLOOD CELLS 7.7 10/3/uL (4.5-10.5)
[2017-02-21 03:27] LABS: HEMATOCRIT 32.6 % (40.0-51.0); MANUAL DIFF NO %
[2017-02-21 03:42] LABS: BUN (BLOOD UREA NITROGEN) 53 MG/DL (6-23); CHLORIDE, SERUM 119 MMOL/L (96-112); CO2 (CARBON DIOXIDE) 22 MMOL/L (24-34); CREATININE 1.67 MG/DL (0.70-1.30); GFR AFRICAN AMERICAN 53 ML/MIN (>=60); GFR NON AFRICAN AMERICAN 45 ML/MIN (>=60); PHOSPHORUS, SERUM 3.9 MG/DL (2.5-4.5); POTASSIUM, SERUM 5.3 MMOL/L (3.5-5.3); SODIUM, SERUM 151 MMOL/L (135-148); TROPONIN I 0.04 NG/ML (<0.05)
[2017-02-21 03:45] LABS: ALBUMIN 2.4 G/DL (3.5-5.0); CK-MB 2.3 NG/ML; CPK 58 U/L (0-200); GLUCOSE, SERUM 136 MG/DL (60-99)
[2017-02-21 06:37] LABS: ASCORBIC ACID (UR NOT ORDER) NEG (NEG); BILIRUBIN, URINE NEGATIVE (NEG); KETONE, URINE NEGATIVE (NEG); LEUKOCYTE ESTERASE(NOT OR NEG (NEG); WBC (NOT ORDERED) (RFLEX) 2 (0-5)
[2017-02-21 09:38] LABS: WBC (NOT ORDERED) (RFLEX) 0 (0-5)
[2017-02-21 09:51] LABS: ASCORBIC ACID (UR NOT ORDER) NEG (NEG); BILIRUBIN, URINE NEGATIVE (NEG); KETONE, URINE NEGATIVE (NEG); LEUKOCYTE ESTERASE(NOT OR NEG (NEG)
[2017-02-21 16:52] LABS: BASOPHILS 0.3 %; BASOPHILS ABSOLUTE 0.02 10/3/uL (0.0-0.16); EOSINOPHILS 1.9 %; EOSINOPHILS ABSOLUTE 0.11 10/3/uL (0.0-0.53); HEMATOCRIT 30.1 % (40.0-51.0); HEMOGLOBIN 9.8 g/dL (13.6-17.8); IMMATURE GRANULOCYTES ABSOLUTE 0.06 10/3/uL (0.0-0.11); LYMPHOCYTES 29.5 %; LYMPHOCYTES ABSOLUTE 1.69 10/3/uL (0.67-4.30); MANUAL DIFF NO %; MEAN CORPUS HGB CONC 32.6 g/dL (32.0-36.0); MEAN CORPUSCULAR HEMOGLOB 31.1 pg (26.0-34.0); MEAN CORPUSCULAR VOLUME 95.6 fL (80-100); MEAN PLATELET VOLUME 9.4 fL (9.2-13.0); MONOCYTES 10.7 %; MONOCYTES ABSOLUTE 0.61 10/3/uL (0.21-1.20); NEUTROPHILS 56.6 %; NEUTROPHILS ABSOLUTE 3.23 10/3/uL (2.02-8.40); PLATELET COUNT 255 10/3/uL (150-400); RBC DISTRIBUTION WIDTH 15.1 % (12.0-16.0); RED CELL COUNT 3.15 10/6/uL (4.7-6.1); WHITE BLOOD CELLS 5.7 10/3/uL (4.5-10.5)
[2017-02-21 17:07] LABS: CALCIUM, SERUM 7.8 MG/DL (8.5-10.4); CHLORIDE, SERUM 119 MMOL/L (96-112); CO2 (CARBON DIOXIDE) 24 MMOL/L (24-34); CREATININE 1.39 MG/DL (0.70-1.30); GFR AFRICAN AMERICAN 66 ML/MIN (>=60); GFR NON AFRICAN AMERICAN 57 ML/MIN (>=60); GLUCOSE, SERUM 131 MG/DL (60-99); POTASSIUM, SERUM 4.4 MMOL/L (3.5-5.3); SODIUM, SERUM 149 MMOL/L (135-148)
[2017-02-21 17:09] LABS: BUN (BLOOD UREA NITROGEN) 40 MG/DL (6-23)
[2017-02-22 06:09] LABS: BASOPHILS 0.3 %; BASOPHILS ABSOLUTE 0.02 10/3/uL (0.0-0.16); EOSINOPHILS 2.2 %; EOSINOPHILS ABSOLUTE 0.15 10/3/uL (0.0-0.53); HEMOGLOBIN 10.3 g/dL (13.6-17.8); IMMATURE GRANULOCYTES ABSOLUTE 0.07 10/3/uL (0.0-0.11); LYMPHOCYTES 30.1 %; LYMPHOCYTES ABSOLUTE 2.04 10/3/uL (0.67-4.30); MEAN CORPUS HGB CONC 32.2 g/dL (32.0-36.0); MEAN CORPUSCULAR HEMOGLOB 31.2 pg (26.0-34.0); MEAN PLATELET VOLUME 9.6 fL (9.2-13.0); MONOCYTES 7.7 %; MONOCYTES ABSOLUTE 0.52 10/3/uL (0.21-1.20); NEUTROPHILS 58.7 %; NEUTROPHILS ABSOLUTE 3.98 10/3/uL (2.02-8.40); PLATELET COUNT 270 10/3/uL (150-400); RBC DISTRIBUTION WIDTH 14.7 % (12.0-16.0); WHITE BLOOD CELLS 6.8 10/3/uL (4.5-10.5)
[2017-02-22 06:13] LABS: MANUAL DIFF NO %
[2017-02-22 06:18] LABS: ALBUMIN 2.3 G/DL (3.5-5.0); CALCIUM, SERUM 8.2 MG/DL (8.5-10.4); CHLORIDE, SERUM 117 MMOL/L (96-112); CO2 (CARBON DIOXIDE) 23 MMOL/L (24-34); GFR AFRICAN AMERICAN 65 ML/MIN (>=60); GFR NON AFRICAN AMERICAN 56 ML/MIN (>=60); PHOSPHORUS, SERUM 3.5 MG/DL (2.5-4.5); POTASSIUM, SERUM 4.7 MMOL/L (3.5-5.3); SODIUM, SERUM 148 MMOL/L (135-148)
[2017-02-22 06:24] LABS: BUN (BLOOD UREA NITROGEN) 34 MG/DL (6-23); GLUCOSE, SERUM 89 MG/DL (60-99)
[2017-02-23 06:23] LABS: BASOPHILS 0.2 %; BASOPHILS ABSOLUTE 0.01 10/3/uL (0.0-0.16); EOSINOPHILS 1.6 %; HEMATOCRIT 31.8 % (40.0-51.0); HEMOGLOBIN 10.3 g/dL (13.6-17.8); IMMATURE GRANULOCYTES 0.8 %; IMMATURE GRANULOCYTES ABSOLUTE 0.05 10/3/uL (0.0-0.11); LYMPHOCYTES 27.8 %; LYMPHOCYTES ABSOLUTE 1.79 10/3/uL (0.67-4.30); MEAN CORPUS HGB CONC 32.4 g/dL (32.0-36.0); MEAN CORPUSCULAR VOLUME 95.8 fL (80-100); MEAN PLATELET VOLUME 9.5 fL (9.2-13.0); MONOCYTES 9.3 %; NEUTROPHILS 60.3 %; NEUTROPHILS ABSOLUTE 3.89 10/3/uL (2.02-8.40); PLATELET COUNT 270 10/3/uL (150-400); RBC DISTRIBUTION WIDTH 14.4 % (12.0-16.0); RED CELL COUNT 3.32 10/6/uL (4.7-6.1); WHITE BLOOD CELLS 6.4 10/3/uL (4.5-10.5)
[2017-02-23 06:24] LABS: MANUAL DIFF NO %
[2017-02-23 06:42] LABS: ALBUMIN 2.2 G/DL (3.5-5.0); CALCIUM, SERUM 8.1 MG/DL (8.5-10.4); CHLORIDE, SERUM 121 MMOL/L (96-112); CO2 (CARBON DIOXIDE) 22 MMOL/L (24-34); CREATININE 1.31 MG/DL (0.70-1.30); GFR AFRICAN AMERICAN 71 ML/MIN (>=60); GFR NON AFRICAN AMERICAN 61 ML/MIN (>=60); GLUCOSE, SERUM 79 MG/DL (60-99); PHOSPHORUS, SERUM 2.7 MG/DL (2.5-4.5); POTASSIUM, SERUM 4.6 MMOL/L (3.5-5.3); SODIUM, SERUM 152 MMOL/L (135-148)
[2017-02-23 06:43] LABS: BUN (BLOOD UREA NITROGEN) 28 MG/DL (6-23)
[2017-02-25 22:51] LABS: % IRON SAT 11 % (20-50); FERRITIN 36 NG/ML (26-388); IRON BINDING CAPACITY 301 MCG/DL (250-450); IRON, SERUM 32 MCG/DL (35-150)
[2017-03-01 04:31] LABS: BASOPHILS 0.3 %; BASOPHILS ABSOLUTE 0.04 10/3/uL (0.0-0.16); EOSINOPHILS 0.8 %; EOSINOPHILS ABSOLUTE 0.09 10/3/uL (0.0-0.53); HEMATOCRIT 31.1 % (40.0-51.0); HEMOGLOBIN 10.2 g/dL (13.6-17.8); IMMATURE GRANULOCYTES 0.3 %; IMMATURE GRANULOCYTES ABSOLUTE 0.03 10/3/uL (0.0-0.11); LYMPHOCYTES 12.1 %; LYMPHOCYTES ABSOLUTE 1.43 10/3/uL (0.67-4.30); MEAN CORPUS HGB CONC 32.8 g/dL (32.0-36.0); MEAN CORPUSCULAR HEMOGLOB 31.2 pg (26.0-34.0); MEAN CORPUSCULAR VOLUME 95.1 fL (80-100); MEAN PLATELET VOLUME 9.5 fL (9.2-13.0); MONOCYTES 8.3 %; MONOCYTES ABSOLUTE 0.99 10/3/uL (0.21-1.20); NEUTROPHILS 78.2 %; NEUTROPHILS ABSOLUTE 9.28 10/3/uL (2.02-8.40); PLATELET COUNT 247 10/3/uL (150-400); RBC DISTRIBUTION WIDTH 14.1 % (12.0-16.0); RED CELL COUNT 3.27 10/6/uL (4.7-6.1)
[2017-03-01 04:36] LABS: MANUAL DIFF NO %; WHITE BLOOD CELLS 11.9 10/3/uL (4.5-10.5)
[2017-03-01 04:46] LABS: BUN (BLOOD UREA NITROGEN) 38 MG/DL (6-23); CALCIUM, SERUM 8.3 MG/DL (8.5-10.4); CHLORIDE, SERUM 115 MMOL/L (96-112); CO2 (CARBON DIOXIDE) 23 MMOL/L (24-34); CREATININE 1.72 MG/DL (0.70-1.30); GFR AFRICAN AMERICAN 51 ML/MIN (>=60); GFR NON AFRICAN AMERICAN 44 ML/MIN (>=60); GLUCOSE, SERUM 120 MG/DL (60-99); PHOSPHORUS, SERUM 2.5 MG/DL (2.5-4.5); POTASSIUM, SERUM 4.6 MMOL/L (3.5-5.3); SODIUM, SERUM 146 MMOL/L (135-148)
[2017-03-21] MEDS ORDERED: CAT1 PO (11:45)
[2017-03-21] MEDS ORDERED: VOLTAREN1 % TOP (11:46)
[2017-03-21] MEDS ORDERED: STOOL SOFTEN240 MG PO (11:47)
[2017-03-21] MEDS ORDERED: LOVENOX40 SC (11:49)
[2017-03-21] MEDS ORDERED: FERROUS SULF325 M1 PO (11:51)
[2017-03-21] MEDS ORDERED: NEUR300 PO (11:52)
[2017-03-21] MEDS ORDERED: NYSTATIN T (11:55)
[2017-03-21] MEDS ORDERED: TYLENOL PM PO (12:02)
[2017-03-21] MEDS ORDERED: [UNRECOGNIZED DRUG - OTHER] T (12:06)
== END 2017-03-01 16:56 | DRG 552 ==
LOC: CDU2 16:50 → SDC/OF 02-21 12:56 → PACU 02-21 16:24 → 1SO 02-21 18:24
PROVIDERS: Internal Medicine; Internal Medicine Nephrology; Nurse Practitioner Family; Orthopaedic Surgery
DX: M48.06 Spinal stenosis, lumbar region (principal); E87.0 Hyperosmolality and hypernatremia; E11.22 Type 2 diabetes mellitus with diabetic chronic kidney disease; E87.5 Hyperkalemia; B37.2 Candidiasis of skin and nail; M51.26 Other intervertebral disc displacement, lumbar region; N18.3 Chronic kidney disease, stage 3 (moderate); E78.5 Hyperlipidemia, unspecified; F44.4 Conversion disorder with motor symptom or deficit; D63.1 Anemia in chronic kidney disease; G62.9 Polyneuropathy, unspecified; I12.9 Hypertensive chronic kidney disease with stage 1 through stage 4 chronic kidney disease, or unspecified chronic kidney disease; L30.9 Dermatitis, unspecified; I44.0 Atrioventricular block, first degree; K21.9 Gastro-esophageal reflux disease without esophagitis; R01.1 Cardiac murmur, unspecified; Z79.899 Other long term (current) drug therapy; Z86.010 Personal history of colon polyps; Z87.11 Personal history of peptic ulcer disease; Z98.84 Bariatric surgery status; Z90.49 Acquired absence of other specified parts of digestive tract; Z91.81 History of falling
CPT/HCPCS: 71010; 72148; 80048; 80069; 81001; 82550; 82553; 82728; 82962; 83036; 83540; 83550; 83735; 84100; 84484; 85025; 93005; 93971; 94640; 97110-GP; 97116-GP; 97162-GP; 97530-GP; A9270-GY; J0610; J0690; J1030; J2250; J2370; J2405; J2710; J2916; J3010